=== PATIENT | female | born 1985 | race Caucasian/White ===

== ENCOUNTER 2017-03-13 18:18 | Emergency (ER) | payer OTHER ==
[~2017-03-13] VITALS: Ht 175.3 cm; Wt 103.9 kg
[2017-03-13 18:22] VITALS: Ht 175.3 cm; Wt 103.9 kg
[2017-03-13 19:29] VITALS: BP 145/65
== END 2017-03-13 19:29 | disposition home or self-care (01) ==
LOC: ED 18:18
DX: J06.9 Acute upper respiratory infection, unspecified (principal)